=== PATIENT | male | born 1965 | race African-American/Black ===

== ENCOUNTER 2017-06-04 09:19 | Day surgery (SDC) | payer OTHER ==
[2017-06-04] MEDS ORDERED: NACL 0.9% 1000 ML 1,000 ML IV SCH (11:00)
--- NOTE | 2017-06-04 11:17 | Anesthesia Consultation ---
Anesthesia Consult and Med Hx Date of service: 06/04/17 - Airway Anesthetic Teeth Evaluation: Poor Mental/Hyoid Distance: Adequate Mallampati Class: Class II Intubation Access Assessment: Probably Good - Pulmonary Exam CTA: Yes - Cardiac Exam Cardiac Exam: RRR - Pre-Operative Health Status ASA Pre-Surgery Classification: ASA2 Proposed Anesthetic Plan: MAC - Pulmonary Hx Smoking: Yes (1/2 ppd) - Cardiovascular System Hx Hypertension: Yes
--- NOTE | 2017-06-04 11:17 | Anesthesia Day of Surgery ---
Anesthesia Day of Surgery - Day of Surgery Patient Examined: Yes Patient H&P Reviewed: Yes Patient is NPO: Yes
[2017-06-04] MEDS ORDERED: DIPRIVAN 10 MG/ML IV ONE ×2 (14:43)
--- NOTE | 2017-06-04 15:34 | Operative Report ---
Operative Report Operative Report: Date of procedure: 06/04/2017 Procedure: Colonoscopy with endoscopic mucosal resection, also snare polypectomy , multiple polyp ablations, submucosal injection of saline. Attending physician: Willam Trimble MD [employer] Supervisor: Willam Trimble MD Indication: Patient is a 52-year-old male who presents for screening colonoscopy. A colonoscopy service to evaluate patient for colorectal cancer screening. Consent: Informed consent was obtained after advising the patient and family regarding nature of this procedure, its indications, potential benefits as well as possible complications including but not limited to bleeding perforation and adverse reaction to medication, infection as well as other cardiopulmonary complications. An informed written and verbal consent was then obtained after due opportunity was provided for questions and answers. Monitoring: Patient was monitored continuously with pulse oximetry and electrocardiographic recordings as well as blood pressure recordings. Vital signs remained stable throughout this procedure with no untoward events. Preoperative assessment: Patient was assessed immediately prior to this procedure for capacity to tolerate monitored anesthesia care and moderate sedation as well as general anesthesia. Patient's ASA classification is 2, Mallampati class is 2, Hyomental distance is 3. Instrument: IEV video colonoscope Medications: Propofol given intravenously in divided doses. For details please refer to anesthesia records. Description of procedure: Patient was placed in the left lateral decubitus position after achieving sedation, a digital rectal examination was performed following which the colonoscope was introduced into the anal verge and advanced to the cecum which was identified by the cecal valve, the appendiceal orifice, as well as by the cecal strap and direct transillumination. The colonoscope was subsequently withdrawn with careful inspection of all mucosal surfaces. Patient tolerated this procedure well and was subsequently taken to the recovery room. The following findings were noted. Findings: There were a few scattered diverticula in the sigmoid colon. There was a sessile broad-based polyp in the sigmoid colon which measured approximately 1-1.5 cm. It was elevated with submucosal injection of saline and removed by snare electrocautery and retrieved. There was a flat polyp measuring approximately 1 cm which was again elevated with submucosal injection of saline and was removed by endoscopic mucosal resection with a snare. The edges of the polyp was then ablated further. Specimen was retrieved. There were multiple diminutive polyps in the rectum that were ablated. There were also 2 additional polyps close to the anal verge there were diminutive measured approximate 4 mm each and were sessile. Both polyps were removed by hot biopsy polypectomy and retrieved. On the retroflex view at the anal verge, patient had internal hemorrhoids. Impression: Multiple sigmoid colon polyps status post submucosal injection, snare polypectomy and endoscopic mucosal resection. Rectal polyps status post ablation Rectal polyp status post hot biopsy polypectomy. Mild diverticulosis. Internal hemorrhoids. Plan: Follow pathology report. High-fiber diet. Repeat colonoscopy in 1 year as patient had multiple colon polyps.
--- NOTE | 2017-06-04 15:35 | Discharge Summary ---
Short Stay Discharge Plan Activity: advance as tolerated Weight Bearing Status: Weight Bear as Tolerated Diet: regular Additional Instructions: Post Sedation D/C Instructions When you return home you may resume your regular diet unless otherwise directed. - Go directly home from the hospital and rest quietly. You may resume normal activities tomorrow. -Do NOT drive, return to work, operate any machinery or make any important personal or business decisions today. - Do NOT drink any alcohol or take nerve or sleeping drugs. They add to the effects of the medicine still present in your body.
[2017-06-04 15:57] VITALS: BP 138/86
--- NOTE | 2017-06-04 16:04 | Post Anesthesia Evaluation ---
- Post Anesthesia Evaluation Patient Participated: Yes Airway Patent: Yes Stable Respiratory Function: Yes Nausea/Vomiting: No Temp > 96.8F: Yes Pain Manageable: Yes Adequeate Hydration: Yes Anesthesia Complications: No
== END 2017-06-04 09:20 | disposition home or self-care (01) ==
LOC: GIO 09:19
PROVIDERS: ATTEND Internal Medicine Gastroenterology
DX: Z12.11 Encounter for screening for malignant neoplasm of colon (principal); K57.30 Diverticulosis of large intestine without perforation or abscess without bleeding; K62.1 Rectal polyp; K63.5 Polyp of colon; K64.8 Other hemorrhoids; F17.210 Nicotine dependence, cigarettes, uncomplicated; I10 Essential (primary) hypertension
CPT/HCPCS: 45384; 45388; 45390; 88305; J2704; J7030